=== PATIENT | female | born 1980 | race American Indian/Alaskan Native ===

== ENCOUNTER 2016-07-04 10:40 | Emergency (ER) | payer OTHER ==
[2016-07-04 10:58] VITALS: BP 119/74
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
== END 2016-07-04 14:00 | disposition left against medical advice (07) ==
LOC: ED 10:40
DX: M54.2 Cervicalgia (principal); M25.511 Pain in right shoulder; Z53.21 Procedure and treatment not carried out due to patient leaving prior to being seen by health care provider